=== PATIENT | female | born 1980 | race Caucasian/White ===

== ENCOUNTER → 2017-06-22 | Outpatient (CLI) | payer BC ==
--- NOTE | 2017-06-24 16:31 | Diagnostic Imaging Report ---
#[id number] - USBRECOMRT ULTRASOUND OF THE RIGHT BREAST : 06/22/2017 No prior exams were available for comparison. Color flow and real-time ultrasound were performed on the entire right breast with scanning in all four quadrants, retroareolar region and the right axilla. -There is a cluster of cysts at 1 o'clock 3 cm from the nipple that has a composite size of 6 mm. -In the area in question there is a dermal lesion measuring 4 x 1 x 3 mm. This is likely a sebaceous cyst. IMPRESSION: BENIGN There is no sonographic evidence of malignancy. Follow-up with ACR/ACS guidelines. Desean Dorman Jr., D.O. cw/:06/24/2017 13:02:23 Label Fuser Tender: LAST GAYTAN [facility] letter sent: Normal Exam Ultrasound BI-RADS: 2 Benign
== END ==
LOC: US 12:58
PROVIDERS: ATTEND Family Medicine
DX: R23.4 Changes in skin texture (principal)